=== PATIENT | male | born 1940 | race Caucasian/White ===

== ENCOUNTER → 2023-10-18 06:37 | Day surgery (SDC) | payer OTHER, SELFPAY | LOC: GI 06:37 | PROVIDERS: ATTENDING PHYSICIAN Internal Medicine Gastroenterology | DX: K31.89 Other diseases of stomach and duodenum (principal); K29.50 Unspecified chronic gastritis without bleeding; Z87.11 Personal history of peptic ulcer disease; Z09 Encounter for follow-up examination after completed treatment for conditions other than malignant neoplasm | CPT/HCPCS: 43239; 88305; 88342 ==

== ENCOUNTER 2024-02-21 13:03 | Outpatient (RCR) | payer OTHER, SELFPAY | END 2024-02-21 23:59 | disposition home or self-care (01) | LOC: RPT 13:03 | PROVIDERS: ATTENDING PHYSICIAN Surgery; FAMILY PHYSICIAN Family Medicine | DX: M62.89 Other specified disorders of muscle (principal); R27.8 Other lack of coordination; Z73.6 Limitation of activities due to disability; M62.81 Muscle weakness (generalized); Z93.2 Ileostomy status; Z85.46 Personal history of malignant neoplasm of prostate | CPT/HCPCS: 97110; 97112; 97140; 97163; 97530 ==

== ENCOUNTER 2024-03-13 14:09 | Outpatient (RCR) | payer OTHER, SELFPAY | END 2024-03-13 23:59 | disposition home or self-care (01) | LOC: RPT 14:09 | PROVIDERS: ATTENDING PHYSICIAN Surgery; FAMILY PHYSICIAN Family Medicine | DX: M62.89 Other specified disorders of muscle (principal); R27.8 Other lack of coordination; Z73.6 Limitation of activities due to disability; M62.81 Muscle weakness (generalized); Z93.2 Ileostomy status; Z85.46 Personal history of malignant neoplasm of prostate | CPT/HCPCS: 97110; 97112; 97140; 97530 ==

== ENCOUNTER 2025-02-27 01:12 | Inpatient (IN) | payer OTHER, SELFPAY ==
[2025-02-26] VITALS (7 sets, daily range): BP systolic 116–138; BP diastolic 51–65; BMI 31.8
--- NOTE | 2025-02-26 20:45 | ED.GENMED ---
History of Present Illness
General
Chief Complaint: Abnormal Lab Value
Time Seen by Provider: 02/26/25 21:16
History of Present Illness
History of Present Illness:
84-year-old male with history of anemia, history of gastrointestinal issues status post colostomy presenting to the emergency department for concern of anemia. Patient had routine laboratory analysis completed yesterday and the hemoglobin was 6.2.
Denies any blood in his stool. Notes history of transfusion in the past, however that was when he was undergoing colonic surgery in 2022. Does note general fatigue for the past 3 to 4 weeks. Also reports some dyspnea. Denies any night sweats,
fever, unintentional weight loss. Denies any present abdominal pain. Denies additional acute medical
Past History
Past History
ED Past Medical History: CAD, HTN and Hypercholesterolemia
ED Past Surgical History: Cardiac and Orthopedic
Patient has exhibited threatening behavior?: No
PSI?: No
Social History
Tobacco: Former smoker
Alcohol: Other
Drug: None
Personal:
Living: with family
Employment: Retired
Family History
Family History: Other
Phy Exam
Physical Exam
Physical Exam:
General: Pale, no clinical signs of dehydration, nontoxic and in no acute distress
HEENT: protecting airway
Neck: appears supple
CV: Normal heart rate, regular rhythm
Resp: No accessory muscle use, no increased work of breathing, lungs clear to auscultation bilaterally
Abd: Soft and non-distended, no tenderness to palpation, colostomy draining brown stool, heme-negative
Extremities: No deformities, no swelling
Neuro: alert, no focal neurologic deficit
: deferred
Rectal: deferred
Psych: Normal affect
Skin: Intact
Course
Orders/Labs/Results
Orders:
Orders
02/26/25 19:30
EKG [Electrocardiogram (*1)] Stat
Reason for Study: Fatigue / Weakness
EKG- Treatment ONCE
02/26/25 21:08
Type And Crossmatch [Type+Screen] Urgent
Complete Blood Count/With Diff Urgent
Comprehensive Metabolic Panel Urgent
Prothrombin Time Urgent
02/26/25 22:39
* Blood Bank Products Urgent
Blood Bank Products: *Packed RBC Leuko(PRBC's)
Quantity: 1
Transfuse Today: Yes
Reason: Anemia
02/27/25 00:49
Admit/Transfer Patient As Directed
Co-Sign Provider:
Level of Care: Inpatient admission
Assign to:: Medical/Surgical
Physician / Group: Faustino
Diagnosis: Symptomatic Anemia
Reason for Hospitalization: Symptomatic Anemia
Expected length of stay greater than two midnights?: Yes
ELOS- Estimated Length of Stay in days: 3
I certify the patient meets the requirements for IP care: Yes
02/27/25 00:50
PRN Pain Medication Management As Directed
May give lesser potent ordered pain med per pt: Yes
preference::
Protocol:: Medication orders for pain may be administered in a
manner that supports deferring to patient preference
when the pt is:
- Requesting an ordered lesser potent pain medication.
Least to most potent pain medications are defined
as: acetaminophen < NSAID < tramadol < opioids
(morphine, oxycodone, hydromorphone).
- Requesting a lesser dose of the same medication IF
ORDERED.
- Requesting a less intrusive route of administration
if both routes are prescribed by the provider (PO <
IV).
02/27/25 00:51
Code Status As Directed
Resuscitation Status: Full Code
02/27/25 01:55
0.9% Sodium Chloride 1000 ml [Nss] 1,000 ml IV 100 mls/hr
Acetaminophen [Tylenol] 650 mg PO Q4HPRN PRN
02/27/25 01:55
Consult Notification Routine
Specialty to Notify: Hematology
HEMATOLOGY CONSULT Routine
Consulting Provider: Paula Chen
Was physician already notified: No
Reason for consult: Pancytopenia
Homocysteine [S] Routine
Methylmalonic Acid [S] Routine
Protein Electrophoresis Reflex [S] Routine
Activity As Directed
Activity Level: Ambulate
With Assistance
Bladder Scan As Directed
Follow Bladder Retention/Intermittent Cath Algorithm?: Yes
PRN if no void in __ hours: 6
Frequency: Per Retention Algorithm
If Bladder Scan Result >: 400
then:: Straight cath
Hemetest Stools As Directed
I/O [Intake/ Output] As Directed
Frequency: Per unit guidelines
Ostomy Care As Directed
Pneumatic Compression Sleeves As Directed
Type: Knee high
Straight Cath As Directed
Frequency: Per Retention Algorithm
Additional Instructions: straight cath as needed per acute urinary retention algorithm for 24 hrs
Additional Instructions: for bladder scan greater than 400 mL
Vital Signs As Directed
Frequency: Per unit guidelines
Weight As Directed
Frequency: Daily
Oxygen Therapy [O2 Therapy] [RESP] Routine
Titrate/Wean O2 to maintain O2 sat greater than (%): 94
DX Deep Vein Thrombosis Video Routine
02/27/25 Breakfast
Regular
At Your Request: Full Participation
Does patient need a safe tray?: No
Basic Metabolic Panel IN AM
Complete Blood Count/With Diff IN AM
02/27/25 08:00
Aspirin Low Dose EC [Aspir Low (Enteric Coated)] 81 mg PO DAILY
Rosuvastatin Calcium [Crestor] 10 mg PO DAILY
Abnormal Lab Results
02/26/25
21:08
WBC 3.1 L 10^3/uL
(4.8-10.8)
RBC 1.77 L 10^6/uL
(4.70-6.10)
Hgb 6.1 L* g/dL
(13.0-18.0)
Hct 18.1 L* %
(39.0-52.0)
MCV 102.3 H fL
(80.0-94.0)
MCH 34.5 H pg
(27.0-31.0)
RDW 16.3 H %
(11.5-14.5)
Plt Count 103 L 10^3/uL
(130-400)
MPV 11.7 H fL
(7.4-10.4)
Abs Immat Gran (auto) 0.1 H 10^3/uL
(0-0.05)
Absolute Lymphs (auto) 0.8 L 10^3/uL
(1.2-3.4)
Immature Gran % 3.9 H %
(0-0.5)
Potassium 5.2 H mmol/L
(3.5-5.1)
Chloride 114 H mmol/L
(98-107)
Carbon Dioxide 17 L mmol/L
(22-30)
BUN 59 H mg/dl
(9-20)
Creatinine 1.6 H mg/dL
(0.7-1.3)
Glucose 105 H mg/dl
(70-99)
Calcium 10.6 H mg/dl
(8.4-10.2)
Crossmatch IS Only See Detail
02/26/25 21:08
02/26/25 21:08
Vital Signs
Initial and Last Documented VS:
Initial Vital Signs
Temp Pulse Resp BP Pulse Ox
97.7 F 78 16 138/54 98
02/26/25 19:26 02/26/25 19:26 02/26/25 19:26 02/26/25 19:26 02/26/25 19:26
Last Documented Vital Signs
Temp Pulse Resp BP Pulse Ox
98.0 F 98 20 134/76 98
02/27/25 02:05 02/27/25 02:05 02/27/25 02:05 02/27/25 02:05 02/27/25 02:42
MDM/Problems Addressed
MDM/Problems Addressed:
84-year-old male with history of anemia presenting to the emergency department for low blood counts. Vital signs on arrival are normal
On exam patient is resting comfortably, no acute distress, is pale, however hemodynamically stable. Symptoms appear consistent with symptomatic anemia. Plan for repeat laboratory analysis. Patient arrives with lab work from his primary care
doctor, who notes that his last hemoglobin in August was 8.7, significant drop. Last platelet count was also around 200, now 99. Kidney function is also increasing.
23:00 - Labs again show a hemoglobin of 6.1, low platelet count, also low WBC. Patient denies any constitutional symptoms other than fatigue, however at this time concern for possible leukemia. Will transfuse patient's blood and plan for admission
for hematologic consultation.
*Pulse Oximetry
SaO2: 98
Oxygen Mode of Delivery: Room air
Patient hypoxic: no
*Critical Care Note
Total Time (30-74mins, 75-104mins- exclusive of procedures): Not Applicable
ED Attending Note
-
Portions of this chart may have been created with voice recognition software.� Occasional wrong word or��sound alike� substitutions may have occurred due to the inherent limitations of voice recognition software.
Discharge Plan
Departure
Patient Disposition: Admit
Date of Disposition: 02/26/25
Time of Disposition: 23:17
Presentation/result/management discussed w/ accepting MD/DO: Hospitalist
Patient with high blood pressure during this ER visit?: No
Condition: Fair
Discharge Problem:
Thrombocytopenia
Interventions
Interventions:
*Risk Screen - Suicide Last Done: 02/26/25 19:26
*Neglect/Abuse Screening Last Done: 02/26/25 19:26
*ED- Fall Risk Assessment Last Done: 02/27/25 01:58
*ED COVID-19 Vaccine History Last Done: 02/27/25 01:58
*Nursing Disposition Last Done: 02/27/25 01:58
Discharge Date and Time
Discharge Date/Time: 02/27/25 01:58
[2025-02-26 21:25] LABS: Hematocrit 18.1 % (39.0-52.0); Hemoglobin 6.1 g/dL (13.0-18.0); Mean Corp Hgb Conc. 33.7 g/dL (33.0-37.0); Mean Corpuscular Volume 102.3 fL (80.0-94.0); Platelet Count 103 10^3/uL (130-400); Red Cell Dist. Width 16.3 % (11.5-14.5)
[2025-02-26 21:29] LABS: INR 1.05; PT 14.2 Sec (11.4-14.6)
[2025-02-26 21:36] LABS: ALT (SGPT) 20 U/L (0-50); AST (SGOT) 28 U/L (17-59); Albumin 4.8 g/dl (3.5-5.0); Alkaline Phosphatase 72 U/L (38-126); Blood Urea Nitrogen 59 mg/dl (9-20); Calcium 10.6 mg/dl (8.4-10.2); Carbon Dioxide 17 mmol/L (22-30); Chloride 114 mmol/L (98-107); Estimated Creatinine Clearance 38 ml/min; Glucose 105 mg/dl (70-99); Potassium 5.2 mmol/L (3.5-5.1); Sodium 140 mmol/L (135-145); Total Protein 7.7 g/dl (6.3-8.2); eGFR 42.75
[2025-02-26 21:43] LABS: Nucleated Red Blood Cells % 0.6 % (-)
[2025-02-27] VITALS (10 sets, daily range): BP systolic 116–142; BP diastolic 52–76; BMI 31.2
--- NOTE | 2025-02-27 00:53 | HPS.HSE ---
Family Physician
-
Family Physician: Sameer Giron
Chief Complaint
-
Abnormal Lab
History of Present Illness
Patient is an 84y M with PMH significant for ASCVD, hypertension, CKD and gout who presents to ED for evaluation of anemia. Patient states that he had labs done by his PCP recently and was called today and advised to present to the ED for
evaluation of new anemia with Hgb = 6.2. Patient states that he has felt fatigued and had some dyspnea with exertion over the last few weeks. No gross blood loss, bloody / black stools, hematuria, etc.
Medical History
Past Medical History
Past Medical History: Reports Other
Additional Past Medical History:
ASCVD
Hypertension
CKD III
Prostate Cancer s/p XRT
Radiation Colitis / Perforation
Permanent Ileostomy
Gout
Hyperparathyroidism
Past Surgical History: Reports Other
Additional Past Surgical History:
Lumbar Laminectomy
Right TKA
Left CHARLENE
PTCA with Stent
Parathyroidectomy
Bilateral Inguinal Hernia Repairs
Ex Lap / Repair Colon Perforation / Colostomy
Colostomy Reversal
Ex Lap / Abscess Drainage / Ileostomy
Social History
Tobacco: Former Smoker (Quit smoking in 1977. Approx 20 pack years total use.)
Alcohol: None
Drug: None
Personal:
Living: With Family
Family History
Family History: Not pertinent
Allergies / Home Medications
Allergies reflects when Allergies were last updated in [facility].
Home Medications with original date entered in [facility]
Allergy/Medication List:
Allergies
Allergy/AdvReac Type Severity Reaction Status Date / Time
clavulanic acid (From Allergy Drug Verified 02/26/25 19:29
Augmentin) Induced
Liver
Injury -
DILI
Home Medications
allopurinol 100 mg tablet 100 mg PO DAILY Gout 01/20/21
folic acid 1 mg tablet 1 mg PO DAILY #90 tabs 04/16/23
aspirin 81 mg tablet,delayed release 81 mg PO DAILY 02/26/25
rosuvastatin 10 mg tablet 10 mg PO DAILY 02/26/25
therapeutic multivitamin 1 tab PO DAILY 02/26/25
valsartan 40 mg tablet 40 mg PO DAILY 02/26/25
Review of Systems
-
History Source: Patient
A 12 point ROS was completed and negative except as noted: Yes
Constitutional: Reports Fatigue; Denies Fever or Chills
Respiratory: Reports Trouble Breathing; Denies Cough
Cardiac: Denies Chest Pain or Palpitations
Abdomen/GI: Denies Abdominal Pain, Nausea, Vomiting, Diarrhea, Bloody Stools or Black Stools
: Denies Dysuria, Frequency, Flank Pain or Bleeding
Musculoskeletal: Denies Joint Pain or Edema
Neurological: Denies Dizzy or Headache
Psych: Denies Depression or Anxiety
Physical Exam
Vital Signs
Vital Signs
Temp Pulse Resp BP Pulse Ox
97.5 F 59 18 129/58 100
02/27/25 00:50 02/27/25 00:50 02/27/25 00:50 02/27/25 00:50 02/26/25 23:21
Physical Exam
General: Other (Pale-appearing 84y M in no acute distress.)
HEENT: Moist mucous membranes and PERRLA
Respiratory: Clear; No Wheezes, Rales or Rhonchi
Cardiac: S1/S2 and Regular Rhythm; No Murmur
GI: Soft, Non Tender, Non Distended, Normal Bowel Sounds and Other (R sided ileostomy with brown stool in device.)
Genito-urinary: No costovertebral tender
Musculoskeletal: No Clubbing, No Cyanosis and No Edema
Neuro: AO x 3 and Nonfocal/grossly intact
Laboratory Results
-
02/26/25 21:08
02/26/25 21:08
Laboratory Results
PT 14.2 Sec (11.4-14.6) 02/26/25 21:08
INR 1.05 02/26/25 21:08
Total Bilirubin 0.4 mg/dl (0.2-1.3) 02/26/25 21:08
AST 28 U/L (17-59) 02/26/25 21:08
ALT 20 U/L (0-50) 02/26/25 21:08
Alkaline Phosphatase 72 U/L (38-126) 02/26/25 21:08
Impression/Plan
-
A/P: Patient is an 84y M with PMH significant for ASCVD, radiation colitis / permanent ileostomy, hypertension and CKD who presents to ED for evaluation of anemia.
Symptomatic Anemia
Pancytopenia
- Admit for further evaluation and treatment.
- Hgb = 6.2 as an outpatient and 6.1 here in the ED. MCV = 102.3.
- Pancytopenia with WBC = 3k and Plts = 103k.
- ? med effect secondary to allopurinol / marrow suppression.
- Outpatient labs reviewed and significant for:
Folate > 20
B12 = 458
TSat = 31%
TSH = 3.020
PSA < 0.01
- Check homocysteine / MMA for lower normal B12 level. Check SPEP.
- Hematology evaluation for additional recommendations.
- Monitor for any evidence of gross blood loss, etc.
CKD III
- SCr = 1.6 which patient states is near his baseline (though last value here was 0.9 in 2022).
- Hold valsartan for now.
- IVFs overnight.
- SPEP as noted above.
- Follow for changes in renal function.
ASCVD
Benign Hypertension
- Stable. Continue ASA daily with prior h/o stent.
- Holding valsartan as noted above. Follow BP for changes.
Prostate Cancer s/p XRT
Radiation Colitis / Perforation
Permanent Ileostomy
- Stable. Heme negative stool in the ED.
- Routine ostomy care.
- PSA on recent labs was undetectable.
Gout
- No current joint pains, etc.
- Hold allopurinol as noted above.
DVT Prophylaxis: SCDs
Code Status: Full
[2025-02-27] MEDS: NSS 1000 IV (02:05)
--- NOTE | 2025-02-27 04:00 | PTCARENOTE ---
Patient received from ED via stretcher with at bedside. Medsurg orders; VSS, no c/o pain. AAOx3, steady on feet-utilizes a SPC; no c/o dizziness or lightheadedness. PMH and medications reviewed by this RN and patient/spouse. Plan of care
discussed. Call mackey within reach.
[2025-02-27] MEDS: CRESTOR 10 MG PO (07:29)
[2025-02-27] MEDS: ASPIR LOW (ENTERIC COATED) 81 MG PO (07:29)
[2025-02-27 07:34] LABS: Hematocrit 18.6 % (39.0-52.0); Hemoglobin 6.2 g/dL (13.0-18.0); Mean Corp Hgb Conc. 33.3 g/dL (33.0-37.0); Mean Corpuscular Volume 99.5 fL (80.0-94.0); Nucleated Red Blood Cells % 0 % (-); Platelet Count 78 10^3/uL (130-400); Red Cell Dist. Width 18.6 % (11.5-14.5)
[2025-02-27 07:58] LABS: Blood Urea Nitrogen 53 mg/dl (9-20); Calcium 10.1 mg/dl (8.4-10.2); Carbon Dioxide 17 mmol/L (22-30); Chloride 116 mmol/L (98-107); Estimated Creatinine Clearance 41 ml/min; Glucose 77 mg/dl (70-99); Potassium 4.7 mmol/L (3.5-5.1); Sodium 140 mmol/L (135-145); eGFR 46.19
--- NOTE | 2025-02-27 10:54 | W.PN.HOSP.TC ---
Today's Communication/Plan
-
Blood transfusion. Hematology consult.
Assessment / Plan
Assessment / Plan
Physical exam:
General: Acutely ill
HEENT: Normocephalic, Atraumatic and Moist Mucous Membranes
Respiratory: Clear to Auscultation; Negative Wheezes, Rales or Rhonchi
Cardiac: Regular Rhythm and S1/S2
GI: Soft, Nontender and Nondistended
Musculoskeletal: No Clubbing, No Cyanosis and No Edema
Neuro: Awake, Alert and Oriented, no neurological deficits
Psych: Calm
A/P:
Symptomatic Anemia
Pancytopenia
- Hgb = 6.2 as an outpatient and 6.1 here in the ED. MCV = 102.3.
- Pancytopenia with WBC = 3k and Plts = 103k.
- ? Etiology
- Outpatient labs reviewed and significant for:
Folate > 20
B12 = 458
TSat = 31%
TSH = 3.020
PSA < 0.01
- Check homocysteine / MMA for lower normal B12 level. Check SPEP.
- Hematology evaluation for additional recommendations.
- Monitor for any evidence of gross blood loss, etc.
- Transfuse another unit of blood today since hemoglobin 6.2 after transfusion
- Hematology consult pending
- Discussed with at bedside today
CKD III. MILAGROS on CKD. Metabolic acidosis
- SCr = 1.6 which patient states is near his baseline (though last value here was 0.9 in 2022).
- Hold valsartan for now.
- IVFs overnight--> will switch to IV fluid with bicarbonate
- SPEP as noted above.
- Follow for changes in renal function.
- Check bladder scans
- Check kidney ultrasound
ASCVD
Benign Hypertension
- Stable. Hold ASA due to thrombocytopenia. Known prior h/o stent. Chest pain-free.
- Holding valsartan as noted above. Follow BP for changes.
- Add IV hydralazine as needed
Prostate Cancer s/p XRT
Radiation Colitis / Perforation
Permanent Ileostomy
- Stable. Heme negative stool in the ED.
- Routine ostomy care.
- PSA on recent labs was undetectable.
Gout
- No current joint pains, etc.
- Hold allopurinol as noted above.
DVT Prophylaxis: SCDs
Code Status: Full
Anticipated Discharge: > 48 hours
Subjective/Interval History
-
Date of Service: February 27, 2025
Patient with generalized fatigue. No chest pain. No fever
Objective Data
-
Labs:
Laboratory Results
02/27/25
07:01
WBC 2.3 L*
Hgb 6.2 L*
Hct 18.6 L*
Plt Count 78 L D
Sodium 140
Potassium 4.7
Chloride 116 H
Carbon Dioxide 17 L
BUN 53 H
Creatinine 1.5 H
Glucose 77
Calcium 10.1
Vital Signs:
Vital Signs
Temp Pulse Resp BP Pulse Ox
97.9 F 60 14 142/55 99
02/27/25 09:08 02/27/25 09:08 02/27/25 09:08 02/27/25 09:08 02/27/25 08:41
I&O
02/26/25 02/27/25 02/28/25
06:59 06:59 06:59
Intake Total 490 / 490 0 / 0
Balance 490 / 490 0 / 0
--- NOTE | 2025-02-27 12:26 | CM ---
Reviewed the chart notes and spoke with the patient at the bedside. The patient resides with his spouse in a two story home with one step to enter. The patient has a cane and shower rails in home. The patient has had [facility] in the past and been to
[facility]. The patient confirmed his pharmacy of choice is [facility]. CM continues to be available to patient/family and is monitoring medical plan for needs at discharge.
Plan: Discharge to home when medically stable. No needs identified at this time.
--- NOTE | 2025-02-27 12:46 | CON.ONC ---
Consultation
-
Date Consultation Requested: 02/27/25
Date Consultation Performed: 02/27/25
Requesting Provider: Dr. Checo Harmon
Performing Provider: Dr Juliette Hennessy
Reason for Consultation: pancytopenia
Impression
Impression
macrocytic anemia
leukopenia with immature forms
thrombocytopenia
mild hypercalcemia
MILAGROS or CKD3
h/o prostate cancer
Plan
Plan
Will check flow cytometry, hemolysis panel and iron studies
Await pending SPEP/ROSA
pRBC transfusion today
May need outpatient bone marrow biopsy, which we discussed
will follow along
Patient History
History of Present Illness
This is an 84 yo M w/ recent hx noted for fatigue and SALVADOR, who was sent to ED after outpatient labs showed pancytopenia. In ER, hgb is 6.1, WBC is 3.1, platelet count 103. He denies bleeding, any recent illnesses or infections, medication changes.
He has a h/o prostate cancer, recent PSA was undetectable. He had bowel perf in summer 2022 related to radiation colitis, for which he had surgery, with complications leading to additional surgery and prolonged hospital stay. He manages his
ileostomy well.
He does not recall being told he has anemia previously.
Creatinine 1.6 and calcium 10.6 at admission.
Per admission H&P:
Outpatient labs reviewed and significant for:
Folate > 20
B12 = 458
TSat = 31%
TSH = 3.020
PSA < 0.01
Past-Medical/Surgical History
Medical History
Past Medical History
Past Medical History: Reports Other
Additional Past Medical History:
ASCVD
Hypertension
CKD III
Prostate Cancer s/p XRT
Radiation Colitis / Perforation
Permanent Ileostomy
Gout
Hyperparathyroidism
Past Surgical History: Reports Other
Additional Past Surgical History:
Lumbar Laminectomy
Right TKA
Left CHARLENE
PTCA with Stent
Parathyroidectomy
Bilateral Inguinal Hernia Repairs
Ex Lap / Repair Colon Perforation / Colostomy
Colostomy Reversal
Ex Lap / Abscess Drainage / Ileostomy
Social History
Tobacco: Former Smoker (Quit smoking in 1977. Approx 20 pack years total use.)
Alcohol: None
Drug: None
Personal:
Living: With Family
Family History
Family History: Not pertinent
Patient Medication
�Medication �Instructions �Recorded �Confirmed �Last Taken �Type
allopurinol 100 mg tablet 100 mg PO DAILY Gout 01/20/21 02/26/25 02/26/25 History
folic acid 1 mg tablet 1 mg PO DAILY #90 tabs 04/16/23 02/26/25 02/26/25 Rx
aspirin 81 mg tablet,delayed 81 mg PO DAILY 02/26/25 02/26/25 02/26/25 History
release
rosuvastatin 10 mg tablet 10 mg PO DAILY 02/26/25 02/26/25 02/26/25 History
therapeutic multivitamin 1 tab PO DAILY 02/26/25 02/26/25 02/26/25 History
valsartan 40 mg tablet 40 mg PO DAILY 02/26/25 02/26/25 02/26/25 History
Active Medications
Generic Name Dose Route Start Last Admin
Trade Name Freq PRN Reason Stop Dose Admin
Acetaminophen 650 mg 02/27/25 01:55
Acetaminophen 325 Mg Tablet PO 03/27/25 01:54
Q4HPRN PRN
Mild Pain / Temp > 101
Aspirin 81 mg 02/27/25 08:00 02/27/25 07:29
Aspirin 81 Mg (Enteric Coated) Tablet PO 03/27/25 07:59 81 mg
On Hold: 02/27/25 10:52 DAILY BETO Administration
Hydralazine HCl 10 mg 02/27/25 10:57
Hydralazine 20 Mg/Ml Vial IV 03/27/25 10:56
Q6HPRN PRN
SBP>170
Sodium Bicarbonate 75 meq/ 1,075 mls @ 85 mls/hr 02/27/25 11:00
Sodium Chloride IV
.[id number] BETO
Rosuvastatin Calcium 10 mg 02/27/25 08:00 02/27/25 07:29
Rosuvastatin (Crestor) 10 Mg Tablet PO 03/27/25 07:59 10 mg
DAILY BETO Administration
Sodium Chloride 0 flush 02/27/25 02:00
Sodium Chloride 0.9% (Flush) Syringe IV 03/27/25 01:59
PER PROTOCOL BETO
Review of Systems
-
All Other Systems: Not reviewed unless documented
Physical Exam
-
General: Well Developed, Well Nourished, No Apparent Distress and Comfortable
HEENT: Moist Mucous Membranes
Cardiology: Normal Sinus Rhythm
Pulmonary: Clear
GI: Soft and Normal Bowel Sounds
Musculoskeletal: No Clubbing, No Cyanosis and No Edema
Neurology: Non Focal, No Lateralizing Symptoms and No Word Finding Difficulty
Skin: Warm and Dry
Hematologic / Lymphatic: No Lymphadenopathy
Psych: Calm and Intact Judgement/Insight
Labs
Lab Results
WBC 2.3 10^3/uL (4.8-10.8) L* 02/27/25 07:01
RBC 1.87 10^6/uL (4.70-6.10) L 02/27/25 07:01
Hgb 6.2 g/dL (13.0-18.0) L* 02/27/25 07:01
Hct 18.6 % (39.0-52.0) L* 02/27/25 07:01
MCV 99.5 fL (80.0-94.0) H 02/27/25 07:01
MCH 33.2 pg (27.0-31.0) H 02/27/25 07:01
MCHC 33.3 g/dL (33.0-37.0) 02/27/25 07:01
RDW 18.6 % (11.5-14.5) H 02/27/25 07:01
Plt Count 78 10^3/uL (130-400) L D 02/27/25 07:01
MPV 10.9 fL (7.4-10.4) H 02/27/25 07:01
Abs Immat Gran (auto) 0.1 10^3/uL (0-0.05) H 02/27/25 07:01
Absolute Neuts (auto) 1.2 10^3/uL (1.4-6.5) L 02/27/25 07:01
Absolute Lymphs (auto) 0.7 10^3/uL (1.2-3.4) L 02/27/25 07:01
Absolute Monos (auto) 0.3 10^3/uL (0.1-0.6) 02/27/25 07:01
Absolute Eos (auto) 0.0 10^3/uL (0-0.7) 02/27/25 07:01
Absolute Basos (auto) 0.0 10^3/uL (0-0.2) 02/27/25 07:01
Immature Gran % 2.6 % (0-0.5) H 02/27/25 07:01
Neutrophils % 51.8 % (42.2-75.2) 02/27/25 07:01
Lymphocytes % 30.5 % (20.5-51.1) 02/27/25 07:01
Monocytes % 14.2 % (1.7-9.3) H 02/27/25 07:01
Eosinophils % 0.9 % (0-6) 02/27/25 07:01
Basophils % 0.0 % (0-2) 02/27/25 07:01
Creatinine 1.5 mg/dL (0.7-1.3) H 02/27/25 07:01
Vital Signs
Vital Signs
Temp Pulse Resp BP Pulse Ox
98.4 F 68 14 122/54 99
02/27/25 12:00 02/27/25 12:00 02/27/25 12:00 02/27/25 12:00 02/27/25 12:00
[2025-02-27] MEDS: SODIUM BICARBONATE 1075 MEQ IV (13:12)
[2025-02-28] MEDS: SODIUM BICARBONATE 1075 MEQ IV (02:30)
[2025-02-28 06:00] VITALS: BMI 31.5
[2025-02-28 07:46] VITALS: BP 120/58
--- NOTE | 2025-02-28 08:03 | W.PN.HOSP.TC ---
Today's Communication/Plan
-
Monitor hemoglobin
Assessment / Plan
Assessment / Plan
Physical exam:
General: Acutely ill
HEENT: Normocephalic, Atraumatic and Moist Mucous Membranes
Respiratory: Clear to Auscultation; Negative Wheezes, Rales or Rhonchi
Cardiac: Regular Rhythm and S1/S2
GI: Soft, Nontender and Nondistended. Ostomy in place
Musculoskeletal: No Clubbing, No Cyanosis and No Edema
Neuro: Awake, Alert and Oriented, no neurological deficits
Psych: Calm
A/P:
Symptomatic Anemia/pancytopenia:
Improving
Hemoglobin up to 7.3 today
Monitor hemoglobin for 24 hours
Received blood transfusions
Hematology consult appreciated
Follow-up hematology recommendations
MILAGROS on CKD. Metabolic acidosis:
Improving
Creatinine from 1.5 down to 1.3 today
Acidosis around 17 up to 23 today
Stop IV fluids with bicarb infusion today
Start ARB tomorrow if renal function remains stable
ASCVD
Benign Hypertension
Stable
Restart ARB if renal function stable in a.m. and aspirin if platelets stable
Prostate Cancer s/p XRT
Radiation Colitis / Perforation
Permanent Ileostomy
- Stable. Heme negative stool in the ED.
- Routine ostomy care.
- PSA on recent labs was undetectable.
Gout
- No current joint pains, etc.
- Hold allopurinol as noted above.
DVT Prophylaxis: SCDs
Code Status: Full
Anticipated Discharge: Within 24 hours
Subjective/Interval History
-
Date of Service: February 28, 2025
Feels well today. No hematemesis or melena
Objective Data
-
Labs:
Laboratory Results
02/28/25
07:40
WBC Pending
Hgb Pending
Hct Pending
Plt Count Pending
Sodium Pending
Potassium Pending
Chloride Pending
Carbon Dioxide Pending
BUN Pending
Creatinine Pending
Glucose Pending
Calcium Pending
Total Bilirubin Pending
AST Pending
ALT Pending
Alkaline Phosphatase Pending
Vital Signs:
Vital Signs
Temp Pulse Resp BP Pulse Ox
98.2 F 63 19 125/55 98
02/27/25 23:27 02/27/25 23:27 02/27/25 23:27 02/27/25 23:27 02/27/25 23:27
I&O
02/27/25 02/28/25 03/01/25
06:59 06:59 06:59
Intake Total 490 / 490 2200 / 2200
Balance 490 / 490 2200 / 2200
[2025-02-28 08:11] LABS: ALT (SGPT) 19 U/L (0-50); AST (SGOT) 26 U/L (17-59); Albumin 3.9 g/dl (3.5-5.0); Alkaline Phosphatase 68 U/L (38-126); Blood Urea Nitrogen 49 mg/dl (9-20); Calcium 10.1 mg/dl (8.4-10.2); Carbon Dioxide 23 mmol/L (22-30); Chloride 114 mmol/L (98-107); Estimated Creatinine Clearance 47 ml/min; Glucose 79 mg/dl (70-99); Potassium 4.6 mmol/L (3.5-5.1); Sodium 141 mmol/L (135-145); Total Protein 6.4 g/dl (6.3-8.2); eGFR 54.85
[2025-02-28 08:13] LABS: Hematocrit 21.6 % (39.0-52.0); Hemoglobin 7.3 g/dL (13.0-18.0); Mean Corp Hgb Conc. 33.8 g/dL (33.0-37.0); Mean Corpuscular Volume 96.4 fL (80.0-94.0); Nucleated Red Blood Cells % 0 % (-); Platelet Count 75 10^3/uL (130-400); Red Cell Dist. Width 20.0 % (11.5-14.5); Reticulocyte Count 1.3 % (0.4-2.8)
[2025-02-28] MEDS: CRESTOR 10 MG PO (08:14)
[2025-02-28 11:09] LABS: Iron 119 ug/dl (49-181)
[2025-02-28 11:18] LABS: Total Iron Binding Capacity 307 ug/dl (261-462)
[2025-02-28 12:13] LABS: Ferritin 170.0 ng/ml (17.9-464.0)
[2025-02-28 15:09] VITALS: BP 123/54
[2025-02-28 23:22] VITALS: BP 110/51
[2025-03-01 05:26] LABS: Hematocrit 21.6 % (39.0-52.0); Hemoglobin 7.2 g/dL (13.0-18.0); Mean Corp Hgb Conc. 33.3 g/dL (33.0-37.0); Mean Corpuscular Volume 96.4 fL (80.0-94.0); Platelet Count 70 10^3/uL (130-400); Red Cell Dist. Width 19.2 % (11.5-14.5)
[2025-03-01 05:34] LABS: Blood Urea Nitrogen 46 mg/dl (9-20); Calcium 10.0 mg/dl (8.4-10.2); Carbon Dioxide 20 mmol/L (22-30); Chloride 114 mmol/L (98-107); Estimated Creatinine Clearance 44 ml/min; Glucose 74 mg/dl (70-99); Potassium 4.5 mmol/L (3.5-5.1); Sodium 142 mmol/L (135-145); eGFR 50.18
[2025-03-01 06:00] VITALS: BMI 31.4
[2025-03-01 07:40] VITALS: BP 112/54
--- NOTE | 2025-03-01 09:09 | W.PN.HOSP.TC ---
Today's Communication/Plan
-
Discharge planning today
Assessment / Plan
Assessment / Plan
Physical exam:
General: No acute distress
HEENT: Normocephalic, Atraumatic and Moist Mucous Membranes
Respiratory: Clear to Auscultation; Negative Wheezes, Rales or Rhonchi
Cardiac: Regular Rhythm and S1/S2
GI: Soft, Nontender and Nondistended. Ostomy in place
Musculoskeletal: No Clubbing, No Cyanosis and No Edema
Neuro: Awake, Alert and Oriented, no neurological deficits
Psych: Calm
A/P:
Symptomatic Anemia/pancytopenia:
Improving/Stable
Hemoglobin up to 7.2 today
Stable hemoglobin over the last 24 hours
Received blood transfusions
Hematology consult appreciated-follow hematology as outpatient
MILAGROS on CKD. Metabolic acidosis:
Improving
Creatinine from 1.5 down to 1.3-->1.4 today
Acidosis fluctuating but improved overall
Follow-up as outpatient
Hold ARB and restart as outpatient depending on follow-up labs
ASCVD
Benign Hypertension
Stable and has not required any antihypertensives
Hold ARB and restart as outpatient depending on follow-up labs
Prostate Cancer s/p XRT
Radiation Colitis / Perforation
Permanent Ileostomy
- Stable. Heme negative stool in the ED.
- Routine ostomy care.
- PSA on recent labs was undetectable.
Gout
- No current joint pains, etc.
- Resume allopurinol as no clear link to presentation
DVT Prophylaxis: SCDs
Code Status: Full
Anticipated Discharge: Today
Subjective/Interval History
-
Date of Service: March 01, 2025
No new complaints.
Objective Data
-
Labs:
Laboratory Results
03/01/25
04:48
WBC 2.5 L
Hgb 7.2 L
Hct 21.6 L
Plt Count 70 L
Sodium 142
Potassium 4.5
Chloride 114 H
Carbon Dioxide 20 L
BUN 46 H
Creatinine 1.4 H
Glucose 74
Calcium 10.0
Vital Signs:
Vital Signs
Temp Pulse Resp BP Pulse Ox
97.9 F 58 16 112/54 97
03/01/25 07:40 03/01/25 07:40 03/01/25 07:40 03/01/25 07:40 03/01/25 07:40
I&O
02/28/25 03/01/25 03/02/25
06:59 06:59 06:59
Intake Total 2200 / 2200 720 / 720
Balance 2200 / 2200 720 / 720
--- NOTE | 2025-03-01 09:30 | W.DCSUMMARY ---
Discharge Summary
Discharge Data
Date of Admission: 02/27/25
Date of Discharge: 03/01/25
Total time spent discharging patient (in min): 32
-
Pending Results: No
Hospital Course
Patient 84 years old male with history of prostate cancer, CKD, hypertension, gout, came into the hospital found to have pancytopenia. Patient received blood transfusions and hemoglobin went up to 7.2. He is workup unrevealing so far but he will
follow-up with hematology closely as outpatient to find out etiology of his pancytopenia. He also had MILAGROS on CKD and metabolic acidosis and he was treated with IV fluids and bicarb infusions and that improved. His renal function not back to
baseline yet so we are asking him to repeat BMP as outpatient while holding ARB and reevaluate as outpatient. Otherwise, patient hemodynamically stable and feels back to his baseline. He will be discharged in stable condition today with close
follow-up with PCP and hematology.
Discharge duration: 32 minutes
Discharge Plan
-
Patient Disposition: Home (Routine Discharge)
Discharge Diagnosis/Procedures: Pancytopenia.
Condition: Good
Diet: Low Cholesterol
Activity: As tolerated
Blood Work: Please PCP/[facility] to do CBC, BMP within 1 week
Referrals:
Juliette Hennessy MD [Active, Oncology] - in one to two weeks
Sameer Giron DO [Family Provider, [facility]] - in less than 1 week
Prescriptions:
Continued
allopurinol 100 MG tablet
100 mg PO DAILY
folic acid 1 mg Tablet
1 mg PO DAILY Qty: 90 0RF
therapeutic multivitamin Tablet
1 tab PO DAILY
aspirin 81 mg Tablet,Delayed Release (Dr/Ec)
81 mg PO DAILY
rosuvastatin 10 mg tablet
10 mg PO DAILY
Held
valsartan 40 mg tablet
40 mg PO DAILY
Hold Instructions: Resume on 03/09/25.
Discharge Orders:
Discharge Patient (As Directed); Ordered 03/01/25
Ordered By: Claudio Hawkins
Discharge Date and Time
Discharge Date/Time: 03/01/25 10:57
Print Language: [place]IZ[place]
[2025-03-01] MEDS: CRESTOR 10 MG PO (09:31)
[2025-03-03 12:21] LABS: Source Blood
[2025-03-04 03:47] LABS: Albumin 3.85 g/dL (3.75-5.01); SPEP IFE Reflex IFE Done; Total Protein-Electrophoresis 6.6 g/dL (6.3-8.2)
== END 2025-03-01 10:57 | disposition home or self-care (01) | DRG 809 ==
LOC: 2 NORTH 01:12
PROVIDERS: ADMITTING PHYSICIAN Hospitalist; ATTENDING PHYSICIAN Hospitalist; EMERGENCY PHYSICIAN Student in an Organized Health Care Education/Training Program; FAMILY PHYSICIAN Family Medicine; OTHER PHYSICIAN Internal Medicine Hematology & Oncology
PROC: 30233N1 Transfusion of Nonautologous Red Blood Cells into Peripheral Vein, Percutaneous Approach (ICD-10-PCS; 2025-02-27)
DX: D61.818 Other pancytopenia (principal); E87.20 Acidosis, unspecified; K52.0 Gastroenteritis and colitis due to radiation; N17.9 Acute kidney failure, unspecified; N18.30 Chronic kidney disease, stage 3 unspecified; I25.10 Atherosclerotic heart disease of native coronary artery without angina pectoris; I12.9 Hypertensive chronic kidney disease with stage 1 through stage 4 chronic kidney disease, or unspecified chronic kidney disease; M10.9 Gout, unspecified; D53.9 Nutritional anemia, unspecified; E83.52 Hypercalcemia; Z92.3 Personal history of irradiation; Z87.891 Personal history of nicotine dependence; Z85.46 Personal history of malignant neoplasm of prostate; Z79.82 Long term (current) use of aspirin; Z79.899 Other long term (current) drug therapy
CPT/HCPCS: 36430; 76775; 80048; 80053; 82248; 82728; 82784; 83010; 83090; 83540; 83550; 83921; 84155; 84165; 85025; 85027; 85045; 85610; 86334; 86850; 86900; 86901; 86920; 93005; 99285; J7030; P9016